=== PATIENT | male | born 1975 | race Caucasian/White ===

== ENCOUNTER 2016-12-16 01:28 | Day surgery (SDC) | payer MEDICARE, MEDICAID ==
[~2016-12-16] VITALS: Ht 175.3 cm; Wt 139.2 kg
[~2016-12-16 01:28] MED LIST: ALBU8.5H2 INHALATION; ALOS0.5T2 PO; AMIO200T PO; AMLO5TAB2 PO; ASCO100089 PO; ASPI-973 PO; ATOR80TA77 PO; CARV3.122 PO; DOCU-41 PO; GABA600T2 PO; HYDR-3940 PO; INSU100I13 SUBQ; INSU200I SQ; ISOS60TA2 PO; KLO1T PO; LISI-567 PO; LORA1TAB PO; MAGN400T23 PO; MECL-114 PO; METF1000 PO; METO2.5T12 PO; MORP-32 PO; NITR0.4T6 SL; OMEP20CA11 PO; OXYC-465 PO; POTA20TA16 PO; SOMA350 PO; SPIR25TA3 PO; THIO300C PO; TORS20TA3 PO; VENL150C PO; VENL37.53 PO; WARF5TAB7 PO
[2016-12-16] MEDS ORDERED: fentaNYL-PF 50 mCg/mL 2 mL Inj ONE (01:29)
[2016-12-16] MEDS ORDERED: Propofol 10,000 mCg/mL 20 mL Inj ONE (01:29)
[2016-12-16] MEDS ORDERED: Lactated Ringer's 1,000 ML IV ONE (06:00)
[2016-12-16 09:19] VITALS: BP 120/64; PULSE 73; RESP 18; O2SAT 95
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
[2016-12-16 10:22] VITALS: BP 92/55; PULSE 79; RESP 16; O2SAT 95
--- NOTE | 2016-12-16 10:23 | PCM.ANEP1 ---
Post Anesthesia Phase 1 PACU Phase 1 Assessment Date of Service: December 16, 2016 (0955) Vital Signs Vital Signs Date Time Temp Pulse Resp B/P Pulse Ox O2 Delivery O2 Flow Rate FiO2 12/16/16 09:19 37.3 73 18 120/64 95 Room Air Anesthetic Administered: MAC Level of Alertness: Awake, talking PAUL's with Equal Strength: No Pain: No Nausea or Vomiting: No Cardiovascular Function and Hy: Yes Oxygen Delivery: Room Air Lungs: Clear to Auscultation Dermatome Level: Full Sensation Complications: No Adriano Cm MD December 16, 2016 10:23
[2016-12-16 10:29] VITALS: BP 109/69; PULSE 74; RESP 16; O2SAT 96
--- NOTE | 2016-12-16 15:04 | ENDO ---
[address] [address] ENDOSCOPY PROCEDURE PATIENT: SID PEREIRA : 1975 MR#: [id number] ADMIT: 12/16/2016 JOB ID: [id number] PROCEDURE: Colonoscopy. INDICATION: Patient with a history of colon polyps. The patient's ASA classification, Mallampati score, and medications as per Anesthesia note. INSTRUMENT USED: PCFH-180AL PREPARATION QUALITY: Poor. PROCEDURE DETAILS: After informed consent was obtained, the patient was brought to the GI suite, where he was placed on oxygen via nasal cannula and monitored with continuous pulse oximeter, telemetry, and blood pressure monitoring. A time-out was performed. Then, he was placed in a left lateral decubitus position and medications were administered for sedation. Digital rectal exam was performed, which was limited secondary to patient's body habitus. I was unable to palpate the prostate. The colonoscope was then inserted into the rectum and advanced under direct visualization to the cecum, which was identified by the presence of the ileocecal valve. I was unable to see the appendiceal orifice secondary to semi-solid stool that we were unable to completely evacuate. Once the cecum was reached, the colonoscope was withdrawn back to the rectum. The mucosa and lumen were examined. Views however were poor as there was a thin layer of stool adherent, starting at the cecum extending to the mid transverse colon. Distal to the mid transverse colon, the prep was fair. Retroflexed views in the rectum were unremarkable. IMPRESSION: Poor prep. RECOMMENDATIONS: Repeat colonoscopy with a two day prep. COMPLICATIONS: None. ESTIMATED BLOOD LOSS: Zero.
== END 2016-12-16 23:59 | disposition home or self-care (01) ==
LOC: END 01:28
PROVIDERS: ATTEND Internal Medicine Gastroenterology
DX: Z12.11 Encounter for screening for malignant neoplasm of colon (principal); Z86.010 Personal history of colon polyps; I10 Essential (primary) hypertension; I50.9 Heart failure, unspecified; I48.91 Unspecified atrial fibrillation; E11.9 Type 2 diabetes mellitus without complications; G47.33 Obstructive sleep apnea (adult) (pediatric); F41.8 Other specified anxiety disorders; G25.81 Restless legs syndrome; Z79.01 Long term (current) use of anticoagulants; Z79.82 Long term (current) use of aspirin; Z86.73 Personal history of transient ischemic attack (TIA), and cerebral infarction without residual deficits
CPT/HCPCS: G0105; J3010; J7120

== ENCOUNTER 2017-01-14 15:12 | Emergency (ER) | payer MEDICARE, MEDICAID ==
[~2017-01-14] VITALS: Ht 175.3 cm; Wt 137.3 kg
[~2017-01-14 15:12] MED LIST changes: -ALOS0.5T2 PO; -METO2.5T12 PO
[2017-01-14 15:13] VITALS: BP 154/111; PULSE 111; RESP 16; O2SAT 96
--- NOTE | 2017-01-14 15:21 | ED.REPORT ---
HPI-Stroke / CVA Jan 14, 2017 ED Provider: Dr. 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 1.5 hours ago, the patient went in to picker operator a prescription and began to experience heart palpitations and dizziness which he attributes to a-fib. He then began to experience moderate right-sided headache with radiation to the neck. The pharmacist told him to go to the ED because he appeared pale. The palpitations resolved after 12 minutes and at time of arrival his headache is decreased in severity. He was able to ambulate into the ED room normally. Pt denies focal numbness or weakness, speech changes, dysphagia, trouble walking, vision changes. Symptoms today were not similar to previous TIAs or strokes. The patient states that he forgot to take his Warfarin for 2 straight months causing multiple TIAs 1.5 months ago. He has been back on his Warfarin for 3 weeks now. His most recent INR was 3.1 taken yesterday. Neurologist: Dr. Pate Nursing Notes Stated Complaint: DIZZY, RIGHT SIDE PAIN Chief Complaint: Stroke Symptoms Nursing Notes Reviewed: Yes Allergies: Coded Allergies: dofetilide (Verified Allergy, Severe, Cardiac Arrest, 06/09/16) Scheduled Alpha Lipoic Acid (Alpha Lipoic Acid) 300 Mg Capsule 300 MG PO DAILY (Reported) Amiodarone (Amiodarone) 200 Mg Tablet 200 MG PO DAILY (Reported) Amlodipine (Amlodipine) 5 Mg Tablet 10 MG PO DAILY (Reported) Ascorbic Acid (Vitamin C) 1,000 Mg Tab.chew 1,000 MG PO BID (Reported) Aspirin (Aspirin) 81 Mg Tablet 81 MG PO HS (Reported) Atorvastatin Calcium (Atorvastatin Calcium) 80 Mg Tablet 80 MG PO HS (Reported) Carvedilol (Carvedilol) 3.125 Mg Tablet 50 MG PO BIDWM (Reported) Clonazepam (Clonazepam) 1 Mg Tablet 2 MG PO BID (Reported) Gabapentin (Gabapentin) 600 Mg Tablet 1,200 MG PO BID (Reported) Gabapentin (Gabapentin) 600 Mg Tablet 1,800 MG PO HS (Reported) Hydralazine (Hydralazine) 50 Mg Tablet 12.5 MG PO TIDWM (Reported) Insulin Glargine (Lantus U100 Solostar Insulin Pen) 100 Unit/1 Ml Insuln.pen 30 UNIT SUBQ HS (Reported) Insulin Lispro (Humalog Kwikpen) 200 Unit/Ml (3 Ml) Insuln.pen 10 UNIT SQ TIDWM (Reported) Isosorbide MN ER (Isosorbide MN ER) 60 Mg Tab.er.24h 120 MG PO DAILY (Reported) Lisinopril (Lisinopril) 20 Mg Tablet 40 MG PO DAILY (Reported) Magnesium Oxide (Mag-Oxide) 400 Mg Tablet 400 MG PO DAILY (Reported) Metformin (Glucophage) 1,000 Mg Tablet 1,000 MG PO BID (Reported) Omeprazole (Omeprazole) 20 Mg Capsule.dr 20 MG PO DAILY (Reported) Potassium Chloride (Potassium Chloride) 20 Meq Tab.er.prt 20 MEQ PO DAILY ( Reported) Spironolactone (Spironolactone) 25 Mg Tablet 25 MG PO DAILY (Reported) Torsemide (Torsemide) 20 Mg Tablet 20 MG PO DAILY (Reported) Venlafaxine ER (Effexor XR) 37.5 Mg Capsule 37.5 MG PO DAILY (Reported) Venlafaxine ER (Effexor XR) 150 Mg Capsule 150 MG PO DAILY (Reported) Warfarin Sodium (Warfarin Sodium) 5 Mg Tablet 5 MG PO 1700 (Reported) Scheduled PRN Albuterol HFA (Proair HFA) 8.5 Gm Hfa.aer.ad 2 PUFFS INHALATION q4-6h PRN PRN For Shortness of Breath (Reported) Carisoprodol (Carisoprodol) 350 Mg Tablet 350 MG PO Q8H PRN PRN For Spasm ( Reported) Docusate Sodium (Colace) 100 Mg Capsule 100 MG PO BID PRN PRN For Constipation ( Reported) Lorazepam (Lorazepam) 1 Mg Tablet 0.5-1 MG PO Q8H PRN PRN For Anxiety (Reported ) Meclizine (Bonine) 25 Mg Tab.chew 25 MG PO DAILY PRN PRN For Dizziness (Reported ) Morphine Sulfate ER (Morphine Sulfate ER) 15 Mg Tablet 15 MG PO Q12H PRN PRN For Pain (Reported) Nitroglycerin SL (Nitroglycerin SL) 0.4 Mg Tab.subl 0.4 MG SL Q4H PRN PRN For Chest Pain (Reported) oxyCODONE-Acetaminophen 7.5-325 mg (oxyCODONE-Acetaminophen 7.5-325 mg) 1 Each Tablet 2 TAB PO Q4H PRN PRN For Pain (Reported) General Time Seen by Provider: 15:23 Chief Complaint Other (MCWILLIAMS) Hx Obtained From: Patient Arrived By: Walk-in Time last known well 13:30 Sudden in Onset?: Yes Symptom Duration: Since onset Progression Since Onset: Gradually improving Location: : Head Quality: Aching Severity: Current: Moderate Severity: Maximum: Moderate Risk Factors )( TPA Administration/Criteria Stroke Thrombolytic Therapy : TPA Considered: No TPA Administered Intravenously: No, exclusion criteria NIH Stroke Scale Level of Consciousness: Alert and responsive (0) Ask Month & Age: Both questions right (0) Open/Close Eyes/Hand Microelectronics Assembler: Performs both tasks (0) Horizontal EO Movements: None (0) Visual Dodson: No visual loss (0) Facial Palsy: Normal symmetry (0) Right Arm Motor Drift (10s): No drift 10 sec (0) Left Arm Motor Drift (10s): No drift 10 sec (0) Right Leg Motor Drift (5s): No drift 5 sec (0) Left Leg Motor Drift (5s): No drift 5 sec (0) Limb Ataxia FNF/Heel-Veloz: Ataxia in 1 limb (1) (LLE, baseline) Sensation (Arms/Legs/Face): No sensory loss (0) Language Aphasia: No aphasia, normal (0) Dysarthria: No dysarthria, normal (0) Extinction/Inattention: No exctinct/inattent (0) NIHSS Score: 1 Time NIHSS Performed: 15:33 Date NIHSS Performed: Jan 14, 2017 Past Medical History Past Medical History Notes: Local Driver: Dr. Reeves Past Medical History 1. Longstanding hypertension, severe. 2. ASCVD with a history of VT in 2006. 3. History of paroxysmal atrial fibrillation, on amiodarone. 4. Chronic warfarin anticoagulation secondary to above. 5. History of multiple TIAs. 6. Type 2 diabetes mellitus, insulin-requiring. 7. Morbid obesity and hyperlipidemia. 8. Obstructive sleep apnea. 9. Chronic pain with narcotic habituation. 10. GERD and gastritis. 11. Prior DVT and Pulmonary embolism Reports: Congestive heart failure, GERD, Hyperlipidemia, Hypertension, Stroke, Transient ischemic attack Reports: Depression, Migraines, Morbid Obesity Past Surgical History EGD 05/22/15 with pre-pyloric ulcer 05/09/15 gastric nodule removed 05/18/15 pharmacological stress test with no ischemia, had chest tightness and "hot flashes" which resolved with rest Family History Reviewed, not pertinent Smoking History Never Smoker Social History Alcohol Use: "Social" Drug Use: Denies drug use Other Social History: Good social support, , Local resident Ambulatory Status Cane Review of Systems Constitutional: Denies: Chills, Fever Respiratory: Denies: Non-productive cough, Shortness of breath Cardiovascular: Reports: Palpitations, Denies: Chest pain, Dyspnea on exertion GI: Denies: Abdominal pain, Diarrhea, Nausea, Vomiting Neurologic: Reports: Dizziness, Headache, Denies: Abnormal movement, Bladder dysfunction, Bowel dysfunction, Change LOC , Confusion, Focal weakness, Lightheaded, Numbness, Problem walking, Seizure, Shaking, Slurred speech, Spinning sensation, Syncope, Unable to speak, Vision change, Weakness Complete sys rev & neg: except as marked. Physical Exam Initial Vital Signs Vital Signs (First) Date Time Temp Pulse Resp B/P Pulse Ox O2 Delivery O2 Flow Rate FiO2 01/14/17 15:13 36.5 111 16 154/111 96 Room Air Initial VS: Reviewed, Vital signs abnormal ENT: Mucous membranes moist, Conjunctiva normal, No scleral icterus Abdomen / GI: Soft, Non-tender, No guarding, No rebound, No distention Extremities: Vascular intact, Neuro intact, No swelling, No tenderness Skin: Warm, Dry, No cyanosis Psychiatric: Mood/affect normal, Behavior normal, Normal thought content General/Constitutional: Awake, Alert, No acute distress, Well appearing, Cooperative, Not toxic appearing Head / Eyes: Atraumatic, Normocephalic, PERRL, EOMI Neck: Atraumatic, Supple, No meningismus, Full range of motion Respiratory / Chest: Breath sounds NL, Breath sounds = bilat, No respiratory distress, No rales, No rhonchi, No wheezing Cardiovascular: Heart rate NL, Regular rhythm, Heart sounds NL, No gallop, No murmurs, No rubs, Cap refill not delayed Neurologic: Oriented X3, Speech NL, CN II - XII intact, Memory NL, Gait NL Slight LLE heel to veloz dysmetria which is basline and chronic caused by a prior CVA NIH stroke scale = 1 for chronic changes Interpretation & Diagnostics Lab Results Interpretation Result Diagram: 01/14/17 1530 01/14/17 1530 Test 01/14/17 15:30 White Blood Count 7.9th/mm3 (3.8-10.1) Red Blood Count 5.70mil/mm3 (4.40-5.80) Hemoglobin 16.6g/dL (13.8-17.2) Hematocrit 46.7% (41.0-50.0) Mean Corpuscular Volume 81.9fL (81-100) Mean Corpuscular Hemoglobin 29.1pg (27.0-35.0) Mean Corpuscular Hemoglobin Concent 35.5% (32.0-37.0) Red Cell Distribution Width 13.1% (12.3-15.4) Platelet Count 318bil/L (150-400) Neutrophils (%) (Auto) 65.4% (40-74) Lymphocytes (%) (Auto) 22.5% (14-46) Monocytes (%) (Auto) 10.1% (4-12) Eosinophils (%) (Auto) 1.0% (0-5) Basophils (%) (Auto) 0.9% (0-3) Prothrombin Time 34.3sec (8.1-12.5) Prothromb Time International Ratio 3.13ratio Activated Partial Thromboplast Time 39.4sec (22.8-33.0) Sodium Level 138mEq/L (134-144) Potassium Level 3.4mEq/L (3.5-5.2) Chloride Level 90mEq/L (97-108) Carbon Dioxide Level 28mmol/L (18-29) Blood Urea Nitrogen 26mg/dL (6-24) Creatinine 1.30mg/dL (0.76-1.27) Estimat Glomerular Filtration Rate 65mL/min (>59) Glucose Level 195mg/dL (60-99) Calcium Level 10.0mg/dL (8.5-10.1) Total Bilirubin 0.5mg/dL (0.0-1.2) Aspartate Amino Transf (AST/SGOT) 41U/L (0-50) Alanine Aminotransferase (ALT/SGPT) 81U/L (0-44) Alkaline Phosphatase 90U/L (25-150) Troponin T < 0.010ug/L (0.0-0.011) Total Protein 7.9g/dL (6.4-8.4) Albumin 4.8g/dL (3.4-5.0) Hold Arredondo Top Tube Received (Received) ECG Interpretation ECG Interpretation: Sinus rhythm rate 95 Time: 16:27 Interpreted by: ED physician Normal ECG Interpretation: No acute ischemic changes CT Head Interpretation IMPRESSION: Stable head CT. No acute intracranial hemorrhage. Note: Findings were discussed with Kevin Corral at 1545 hours on 01/14/17. This study fulfills neurological imaging criteria for inclusion or exclusion of acute stroke therapies based on available published neurological imaging guidelines. Dictated by: Tony Cobb M.D. on 01/14/2017 at 15:31 Approved by: Tony Cobb M.D. on 01/14/2017 at 15:58 Study: Head CT no contrast Interpretation / Wet Read by: Interpret - Radiologist, Discussed w radiologist Re-Eval/Medical Decision Med Decision/Clinical Course 41-year-old male history of CVAs, on warfarin presenting as code stroke. Patient reported dizziness and right-sided headache onset 2 hours prior to arrival. Code stroke was called. CT showed no intracranial hemorrhage. Patient is not a TPA candidate given being on warfarin. His symptoms resolved while he was here. His workup was negative. His symptoms are vague and are not consistent with previous stroke and they resolved while here. I did discuss with the patient and offered him admission but he requests to go home. Patient will be discharged home with plans to follow up with his neurologist and his primary doctor will continue his warfarin. Re-Evaluation/Progress : Time of Eval: 16:31 Re-Evaluation/Progress Note: Pt rechecked. Feels better and wants to go home. Informed pt of plan for treatment. Pt understands and agrees with plan for treatment. F/U instructions and RTER warnings given. All questions addressed. Counseled Regarding: Diagnosis, Lab results, Need for follow-up, When/why to return to ED Patient Discharge & Departure Impression: Primary Impression: Headache Headache type: unspecified Headache chronicity pattern: acute headache Intractability: not intractable Qualified Code: R51 - Headache Additional Impression: Dizziness Disposition: Home Discharge Condition All VS Reviewed: Yes Condition: Stable Patient Instructions: Acute Headache (ED) Additional Instructions: The CT scan today showed no abnormalities. Labs were normal. Your INR was 3.13. You decided to go home today. Return to the emergency department for severe headache, one-sided numbness or weakness, vomiting, speech changes, vision changes, high fever, or for other concerning symptoms. Follow-up with your primary care doctor and neurologist in 1 week. Referrals: Ehsan Baca MD (PCP) Roland Pate MD Crit Care Except Billable Proc Time Spent: 30-74 minutes (35 minutes) Services Performed: Patient management by me, Time spent at bedside, Reviewing test results, Reviewing imaging, Discussing patient care, Documentation in record Scribe Attestation Portions of this note were transcribed by Rahul Cai. I, Dr. Corral personally performed the history, physical exam and medical decision-making; I reviewed and confirmed the accuracy of the information in the transcribed note. Signed by Patrick Joshi, 01/14/17 - 1600 copies to: Ehsan Baca MD; Roland Pate MD, Ben M MD Jan 14, 2017 15:21 RAHUL CAI Jan 14, 2017 15:37
[2017-01-14 15:44] LABS: BASOPHILS % (AUTO) 0.9 % (0-3); MONOCYTES % (AUTO) 10.1 % (4-12); Mean Corpuscular Hemoglobin 29.1 pg (27.0-35.0); Mean Corpuscular Volume 81.9 fL (81-100); NEUTROPHILS % (AUTO) 65.4 % (40-74); Platelet Count 318 bil/L (150-400)
--- NOTE | 2017-01-14 16:00 | DRSVH ---
PROCEDURE: CT BRAIN (TPA) ([id number]) INDICATIONS: Stroke TECHNIQUE: Noncontrast 4.5 mm thick angled axial sections acquired from the foramen magnum to the vertex, with c oronal reformats. COMPARISON: [facility], CT, BRAIN (TPA), 06/09/2016, 0:07. [facility], CT, BRAIN (TPA), 06/07/2016, 23:08. FINDINGS: Image quality: Excellent. CSF spaces: Basal cisterns are patent. No extra-axial fluid collections. Ventricles are normal in size and shape. Brain: No midline shift. No intracranial masses or hemorrhage. Bledsoe-white matter interface is norm al. Skull and face: Calvarium and visualized facial bones are intact, without suspicious lesions. Sinuses: Visualized sinuses and mastoids are clear. IMPRESSION: Stable head CT. No acute intracranial hemorrhage. Note: Findings were discussed with Kevin Corral at 1545 hours on 01/14/17. This study fulfills neurological imaging criteria for inclusion or exclusion of acute stroke therapie s based on available published neurological imaging guidelines. Dictated by: Tony Cobb M.D. on 01/14/2017 at 15:31 Approved by: Tony Cobb M.D. on 01/14/2017 at 15:58
--- NOTE | 2017-01-14 16:02 | NUR ---
Evaluation completed. Please go to "Notes" then click on "Assessments and Notes" (bottom left corner of screen). Then select appropriate discipline tab on top of screen.
[2017-01-14 16:04] LABS: INR 3.13 ratio
[2017-01-14 16:12] VITALS: BP 151/100; PULSE 103; RESP 18; O2SAT 95
[2017-01-14 16:21] LABS: TROPONIN T < 0.010 ug/L (0.0-0.011)
[2017-01-14 17:33] VITALS: BP 152/91; PULSE 100; RESP 21; O2SAT 95
== END 2017-01-14 17:35 | disposition home or self-care (01) ==
LOC: SED 15:12
DX: R51 Headache (principal); R42 Dizziness and giddiness; I11.0 Hypertensive heart disease with heart failure; I50.9 Heart failure, unspecified; E11.9 Type 2 diabetes mellitus without complications; K21.9 Gastro-esophageal reflux disease without esophagitis; E78.5 Hyperlipidemia, unspecified; Z86.73 Personal history of transient ischemic attack (TIA), and cerebral infarction without residual deficits; Z86.711 Personal history of pulmonary embolism; Z79.82 Long term (current) use of aspirin; Z79.84 Long term (current) use of oral hypoglycemic drugs; Z79.4 Long term (current) use of insulin; Z79.899 Other long term (current) drug therapy; Z88.8 Allergy status to other drugs, medicaments and biological substances
CPT/HCPCS: 36415; 70450; 80053; 84484; 85025; 85610; 85730; 92610; 93005; 96374; 99285; J1885

== ENCOUNTER → 2017-01-28 | Day surgery (SDC) | payer MEDICARE, MEDICAID ==
[~2017-01-28] VITALS: Ht 175.3 cm; Wt 140.0 kg
[~2017-01-28] MED LIST changes: +Lactated Ringer's 1,000 ML IV SCH; +Lidocaine PF 1% 30 mL Inj ONE; +MetoCLOpramide 5 mg/mL 2 mL Inj IVPUSH PRN; +Ondansetron 2 mg/mL 2 mL Inj IVPUSH PRN; +Propofol 10,000 mCg/mL 20 mL Inj ONE
[2017-01-28 11:37] VITALS: BP 144/77; PULSE 68; RESP 14; O2SAT 97
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
[2017-01-28] MEDS: Lactated Ringer's 1,000 ML IV SCH ×2 (12:39→12:49)
[2017-01-28 13:00] VITALS: BP 103/55; PULSE 68; RESP 16; O2SAT 95
[2017-01-28 13:08] VITALS: BP 109/63; PULSE 69; RESP 16; O2SAT 96
--- NOTE | 2017-01-28 13:08 | PCM.ANEP1 ---
Post Anesthesia PACU Phase 1 Assessment Vital Signs Vital Signs Date Time Temp Pulse Resp B/P Pulse Ox O2 Delivery O2 Flow Rate FiO2 01/28/17 13:00 68 16 103/55 95 Room Air 01/28/17 11:37 36.1 68 14 144/77 97 Room Air Anesthetic Administered: MAC Level of Alertness: Awake, talking PAUL's with Equal Strength: Yes Pain: No Nausea or Vomiting: No CV Function & Hydration Stable: Yes Airway Device: Oxygen Delivery: Room Air Lungs: Normal Air Movement PACU Phase 2 Assessment Complications: No Follow up Care: N/A Patient Instructions Provided: N/A Rubén Ayers MD Jan 28, 2017 13:08
--- NOTE | 2017-01-28 14:25 | ENDO ---
[address] [address] ENDOSCOPY PROCEDURE PATIENT: SID PEREIRA : 1975 MR#: [id number] ADMIT: 01/28/2017 JOB ID: [id number] DATE OF SERVICE: 01/28/2017 PROCEDURE PERFORMED: Colonoscopy. INDICATIONS: The patient with a personal history of colon polyps. The patient has been brought back today, as his colonoscopy was a poor prep. ASA CLASSIFICATION, MALLAMPATI SCORE AND MEDICATIONS: Please see Dr. Tyson Ayers's anesthesia report for details regarding sedation. INSTRUMENT USED: [id number]. PREPARATION QUALITY: Poor. PROCEDURE DETAILS: After informed consent was obtained, the patient was brought to the GI suite, where he was placed on oxygen via nasal cannula and monitored with continuous pulse oximeter, telemetry, and blood pressure monitoring. A time-out was performed. Then, he was placed in the left lateral decubitus position and medications were administered for sedation. Digital rectal exam with palpation of the prostate was performed which was unremarkable. The colonoscope was then inserted into the rectum and advanced under direct visualization to the cecum, which was identified by the presence of the ileocecal valve and appendiceal orifice. Once the cecum was reached, the colonoscope was withdrawn back into the rectum, as the mucosa and lumen were examined. In the rectum, retroflexion was performed. Following retroflexion, remaining air in the rectum was suctioned, and procedure was completed. FINDINGS: 1. In the cecum there were two polyps ranging in size from 4 mm to 5 mm. Both polyps were removed using a hot snare. 2. In the descending colon, there was an approximately 4 mm sessile polyp that was removed with a hot snare. 3. The colon prep was poor. However, no large lesions seen. Smaller lesions may have been missed. IMPRESSION: 1. Two ascending colon polyps. 2. Descending colon polyp. 3. Poor prep. RECOMMENDATIONS: 1. Avoid NSAIDs and anticoagulants for 72 hours. 2. Repeat colonoscopy in one year. COMPLICATIONS: None. ESTIMATED BLOOD LOSS: Less than 5 mL.
--- NOTE | 2017-02-03 11:23 | PATH ---
SURGICAL PATHOLOGY Attending Physician:Paulie Devi CASE STATUS: Signed Out PATIENT NAME: SID PEREIRA PID: [id number] : 1975 DATE COLLECTED:01/28/2017 00:00 SPECIMEN: 1: Colon, Polyp 2: Colon, Polyp CLINICAL HISTORY: 1). CECUM POLYP 2). DESCENDING COLON POLYP FINAL DIAGNOSIS: 1. Cecum Polyp: Tubular adenoma involving multiple biopsy fragments. 2. Descending Colon Polyp: Tubular adenoma. ICD10: D12.0 GROSS DESCRIPTION: The specimen is received in two formalin filled containers labeled with the patient's name. 1). The specimen sublabeled "cecum polyps" and consists of multiple portions of tissue which aggregate to 0.6 x 0.6 x 0.5 CM. The specimen is entirely submitted in cassette 1A. 2). The specimen is sublabeled "descending colon polyp" and consists of a 0.3 x 0.3 x 0.3 CM portion of tissue which is entirely submitted in cassette 2A. 01/29/2017 [facility] ICD-9 CODES: CPT CODES: 1: 09976 2: 60338 Electronically Signed Out Evin Rendon MD [facility] [address], [place] [address] Technical component performed at [facility], [facility] [address], [place], [address]
== END | disposition home or self-care (01) ==
LOC: END 01:00
PROVIDERS: ATTEND Internal Medicine Gastroenterology
DX: Z12.11 Encounter for screening for malignant neoplasm of colon (principal); Z86.010 Personal history of colon polyps; D12.0 Benign neoplasm of cecum; D12.4 Benign neoplasm of descending colon; I25.10 Atherosclerotic heart disease of native coronary artery without angina pectoris; I48.91 Unspecified atrial fibrillation; E78.5 Hyperlipidemia, unspecified; E11.42 Type 2 diabetes mellitus with diabetic polyneuropathy; E11.43 Type 2 diabetes mellitus with diabetic autonomic (poly)neuropathy; G90.9 Disorder of the autonomic nervous system, unspecified; M06.9 Rheumatoid arthritis, unspecified; F41.8 Other specified anxiety disorders; G47.33 Obstructive sleep apnea (adult) (pediatric); E66.01 Morbid (severe) obesity due to excess calories; Z79.01 Long term (current) use of anticoagulants; Z86.73 Personal history of transient ischemic attack (TIA), and cerebral infarction without residual deficits; Z86.718 Personal history of other venous thrombosis and embolism; Z79.4 Long term (current) use of insulin; Z79.84 Long term (current) use of oral hypoglycemic drugs; Z68.42 Body mass index [BMI] 45.0-49.9, adult
CPT/HCPCS: 45385; J7120